=== PATIENT | male | born 1990 | race Caucasian/White ===

== ENCOUNTER 2017-07-15 18:30 | Emergency (ER) | payer MEDICAID ==
[~2017-07-15] VITALS: Ht 182.9 cm; Wt 72.6 kg
[2017-07-15 18:37] VITALS: BP 120/69
== END 2017-07-15 19:55 | disposition home or self-care (01) ==
LOC: ER 18:34
DX: L03.115 Cellulitis of right lower limb (principal); L03.116 Cellulitis of left lower limb; F10.10 Alcohol abuse, uncomplicated; F17.200 Nicotine dependence, unspecified, uncomplicated; Z88.0 Allergy status to penicillin; Z60.2 Problems related to living alone
CPT/HCPCS: 99283; A4606; Z7610

== ENCOUNTER 2018-08-07 23:15 | Emergency (ER) | payer MEDICAID, OTHER ==
[~2018-08-07] VITALS: Ht 182.9 cm; Wt 70.3 kg
[2018-08-07 23:56] VITALS: BP 105/71
--- NOTE | 2018-08-08 00:16 | NUR ---
Note esterone in EDM - 08/08/18 at 0022 by BE BIBSELF FROM HOME. AAOX4. NAD, BREATHING EVEN AND UNLABORED. AMBULATORY. C/O MULTIPLE VESICLES ON L CALF AND L BAILON SOME ARE PUSS FILLED. PT STATES THAT HE HAD THE SAME IN THE PAST AND WAS DX WITH STAFF INFECTION. PT HAS PAIN BUT TOLERATED. PT ER BED 1. AWAITING MD FOR EVAL.
--- NOTE | 2018-08-08 00:16 | NUR ---
BIBSELF FROM HOME. AAOX4. NAD, BREATHING EVEN AND UNLABORED. AMBULATORY. C/O MULTIPLE VESICLES ON L CALF AND L BAILON SOME ARE PUSS FILLED X 1 WEEK. PT STATES THAT HE HAD THE SAME IN THE PAST AND WAS DX WITH STAFF INFECTION. PT HAS PAIN BUT TOLERATED. PT ER BED 1. AWAITING MD FOR EVAL.
[2018-08-08] MEDS ORDERED: SULFAMETH/TRIMETH 800/160 MG 1 UDTAB TABLET PO ONE ×2 (01:30→01:33)
--- NOTE | 2018-08-08 01:37 | NUR ---
Patient discharged to home in stable condition. Written and verbal after care instructions given. Patient verbalizes understanding of instruction.
== END 2018-08-08 01:39 | disposition home or self-care (01) ==
LOC: ER 23:20
DX: L73.9 Follicular disorder, unspecified (principal); F17.200 Nicotine dependence, unspecified, uncomplicated; Z88.0 Allergy status to penicillin; Z60.2 Problems related to living alone